=== PATIENT | female | born 1965 ===

== ENCOUNTER 2018-04-18 11:20 | Emergency (ER) | payer OTHER ==
[2018-04-18 11:21] VITALS: BMI 26.1
[2018-04-18 11:25] VITALS: BP 130/66; PULSE 86; RESP 18; TEMP 98.7; O2SAT 99
--- NOTE | 2018-04-18 11:55 | C.PDOC ---
History Of Present Illness 52 y/o female with PMH HTN presents to ED with c/o throat pain for 7 days. Patient also c/o rash to arms for 5 days. 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 Occasionally uses gloves. No known allergens- no medication, foods or location. No one else has a similar rash. Denies fever, tongue/lip swelling, cough, sob or any other complaints at this time. 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 History/Exam Limitations: no limitations Onset/Duration Of Symptoms: Days Current Symptoms Are (Timing): Still Present Quality Of Symptoms: Itching Past Medical History Reviewed: Historical Data, Nursing Documentation, Vital Signs Vital Signs: Last Vital Signs Temp 98.7 F 04/18/18 11:23 Pulse 86 04/18/18 11:23 Resp 18 04/18/18 11:23 BP 130/66 04/18/18 11:23 Pulse Ox 99 04/18/18 12:21 - Medical History PMH: HTN Surgical History: No Surg Hx Family History: States: No Known Family Hx - Social History Hx Alcohol Use: No Hx Substance Use: No - Immunization History Hx Tetanus Toxoid Vaccination: No Hx Influenza Vaccination: No Hx Pneumococcal Vaccination: No Review Of Systems Constitutional: Negative for: Fever, Chills ENT: Positive for: Throat Pain Cardiovascular: Negative for: Chest Pain Respiratory: Negative for: Cough, Shortness of Breath Skin: Positive for: Rash Physical Exam - Physical Exam Appears: Well, Non-toxic, No Acute Distress Skin: Warm, Dry, Rash ((+) erythematous macular rash with some scaling on dorsal aspect of wrist and parts of her hands) Head: Atraumatic, Normacephalic Eye(s): bilateral: Normal Inspection, EOMI Ear(s): Bilateral: Normal Nose: Normal Oral Mucosa: Moist Tongue: No Swelling Lips: No Swelling Throat: Normal, No Erythema, No Exudate, No Drooling Neck: Normal ROM, Supple Chest: Symmetrical Cardiovascular: Rhythm Regular Respiratory: Normal Breath Sounds, No Accessory Muscle Use, No Rales, No Rhonchi , No Wheezing Extremity: Normal ROM Neurological/Psych: Oriented x3, Normal Speech, Normal Cognition ED Course And Treatment O2 Sat by Pulse Oximetry: 99 (RA) Progress Note: Benadryl ordered. On re-evlaution, patient is resting comfortably, tolerating PO, has no shortness of breath, has no intra-oral swelling, no stridor. Patient notes that pruritus has improved.. Patient was advised to avoid potential allergens, and to follow up with physician in 1-2 days. Disposition - Disposition Disposition: HOME/ ROUTINE Disposition Time: 12:18 Condition: STABLE Additional Instructions: Vaya a hebert mdico o la clnica en 2-5 larkin sin falta, para mas evaluacin. Athena los medicamentos dino indicado. Volver a la cinthia de emergencia en cualquier momento si los sntomas persisten o empeoran. 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 - Scribe Statement The provider has reviewed the documentation as recorded by the Scribnorma Amaro All medical record entries made by the Gabrielibnorma were at my direction and personally dictated by me. I have reviewed the chart and agree that the record accurately reflects my personal performance of the history, physical exam, medical decision making, and the department course for this patient. I have also personally directed, reviewed, and agree with the discharge instructions and disposition.
== END 2018-04-18 12:36 | disposition home or self-care (01) ==
LOC: C.ER 11:20
DX: R21 Rash and other nonspecific skin eruption (principal)

== ENCOUNTER 2018-09-26 08:42 | Outpatient (CLI) | payer OTHER | END 2018-09-26 08:43 | disposition home or self-care (01) | LOC: C.LAB 08:42 ==

== ENCOUNTER 2018-10-03 15:06 | Outpatient (CLI) | payer OTHER | END 2018-10-03 15:07 | disposition home or self-care (01) | LOC: C.MAMMO 15:06 | DX: Z12.31 Encounter for screening mammogram for malignant neoplasm of breast (principal) ==

== ENCOUNTER 2018-11-28 10:45 | Outpatient (CLI) | payer OTHER | END 2018-11-28 10:46 | disposition home or self-care (01) | LOC: C.MAMMO 10:45 ==